=== PATIENT | male | born 1975 | race Caucasian/White ===

== ENCOUNTER 2019-10-07 13:08 | Emergency (ER) | payer BC, OTHER ==
--- OUTSIDE RECORDS SUMMARY | 2019-10-07 13:18 | XMS REPORT | Continuity of Care Document ---
:1975 External Reference #:[id number] Author Name JUAN Roger Address [address] [place] [address] Care Team Providers Name Role Phone Carmelo Kuo MD - Infectious Care Team Information Wheel Installer [phone] Disease Lisa Bals MD - Surgery of the Care Team Information Wheel Installer Hand Titi Grijalva MD - Family Medicine Care Team Information Wheel Installer [phone] Problems Active Problems Provider Date Mixed hyperlipidemia Titi Grijalva M.D. Onset: 08/29/2015 Mild recurrent major depression Randal Durham M.D. Onset: 10/24/2013 Cellulitis and abscess of finger Randal Durham M.D. Onset: 10/24/2013 Adult health examination Randal Durham M.D. Onset: 10/24/2013 Bite of nonvenomous arthropod Randal Durham M.D. Onset: 05/18/2013 Alcohol abuse Randal Durham M.D. Onset: 05/16/2013 Allergic rhinitis Randal Durham M.D. Onset: 10/14/2012 Essential hypertension Randal Durham M.D. Onset: 10/14/2012 Social History Type Date Description Comments Sex Unknown ETOH Use Occasional Tobacco Use Start: Unknown End: Unknown Patient is a former smoker Smoking Status Reviewed: 09/19/19 Patient is a former smoker Allergies, Adverse Reactions, Alerts Active Allergies Reaction Severity Comments Date Sulfa 10/14/2012 Medications Active Medications SIG Qnty Indications Ordering Date Provider Viagra take 1 tablet 21tabs Titi Grijalva, 10/14/2012 25mg Tablets daily as needed, M.D. take at least one hour prior to relations Bystolic Take 1 And 1/2 135tabs I10 Titi Grijalva, 10/14/2012 10mg Tablets Tablets Daily M.D. History Medications Zetia take 1 tablet 30tabs E78.2 Eveline Solomon 07/13/2019 - 10mg daily BENI Walker 09/19/2019 Tablets Immunizations CPT Code Status Date Vaccine Lot # [id number] Given 06/30/2016 Influenza Vac, Quadrivalent, Slit Virus, Im [id number] Given 10/18/2013 Tdap Tetanus, W Pertussis [id number] Vital Signs Date Vital Result Comment 09/19/2019 1:04pm BP Systolic 142 mmHg BP Diastolic 100 mmHg BP Systolic Recheck 138 mmHg BP Diastolic Recheck 85 mmHg Heart Rate 60 /min Body Temperature 97.7 F Height 73.25 inches 6'1.25" Weight 232.00 lb BMI (Body Mass Index) 30.4 kg/m2 07/13/2019 6:21pm BP Systolic 120 mmHg BP Diastolic 70 mmHg Heart Rate 68 /min Body Temperature 97.9 F Respiratory Rate 16 /min Height 73.25 inches 6'1.25" Weight 227.00 lb BMI (Body Mass Index) 29.7 kg/m2 Results Test Acquired Date Facility Test Result H/L Range Note Comprehensive 07/06/2019 [facility] Sodium 137 mEq/L 134-149 Metabolic Prof Potassium 4.3 mEq/L 3.6-5.5 Chloride 103 mEq/L 94-112 Carbon Dioxide 24 mEq/L 21-32 Glucose 103 mg/dL 70-105 BUN 21 mg/dL 6-26 Creatinine 1.1 mg/dL 0.6-1.4 BUN/Creat Ratio 19.1 CALC 8.0-36.0 Calcium 8.9 mg/dL 8.6-10.2 Total Protein 6.6 g/dL 6.4-8.3 Albumin 4.1 g/dL 3.8-5.5 Globulin 2.5 g/dL 2.0-4.8 A/G Ratio 1.6 CALC 0.6-2.3 Alk. Phosphatase 58 U/L 22-95 Alt (SGPT) 25 U/L 7-35 Ast (Sgot) 21 U/L 5-34 Total Bilirubin 0.4 mg/dL 0.2-1.3 GFR Non- >60 ml/min/1.73m^ >=60 GFR >60 ml/min/1.73m^ >=60 Lipid Profile 07/06/2019 [facility] Cholesterol 278 mg/dL High 120-200 Triglycerides 454 mg/dL High 30-200 HDL Cholesterol 45 mg/dL 30-70 LDL (Calculated) 142 CALC High 0-129 VLDL Cholesterol 91 mg/dL High 0-50 HDL Risk Factor 6.2 CALC High 0.0-4.4 Laboratory test 07/06/2019 [facility] LDL, Direct 137 mg/dL High 0-130 finding Procedures Description No Information Available Medical Devices Description No Information Available Encounters Type Date Location Provider Dx Diagnosis Office Visit 07/13/2019 Main Office JUAN Roger E78.2 Mixed hyperlipidemia 6:30p M79.604 Pain in right leg Assessments Date Code Description Provider 09/19/2019 E78.2 Mixed hyperlipidemia JUAN Roger 09/19/2019 E78.2 Mixed hyperlipidemia JUAN Roger 07/13/2019 E78.2 Mixed hyperlipidemia JUAN Roger 07/13/2019 M79.604 Pain in right leg JUAN Roger 07/06/2019 E78.2 Mixed hyperlipidemia Titi Grijalva M.D. 07/06/2019 E78.1 Pure hyperglyceridemia Titi Grijalva M.D. 07/05/2019 E78.2 Mixed hyperlipidemia Titi Grijalva M.D. Plan of Treatment 09/19/2019 - Manuela Jimenez, PAE78.2 Mixed hyperlipidemiaComments:Stop Zetia Increase activity as tolerated, whole food plant based as much as possible with lean meats. fatty fish, fish oil, more plantsFollow up in 3 months of sooner if you still aren't feeling well after stopping zetia.E78.2 Mixed hyperlipidemiaComments:Stop Zetia Increase activity as tolerated, whole food plant based as much as possible with lean meats. fatty fish, fish oil, more plantsFollow up in 3 months of sooner if you still aren't feeling well after stopping zetia.AllComments:PCMHMedication Management Patient Understands medications he's taking? Yes Are there Barriers to Adherence? No Has the patient been asked about herbal supplements and therapies, and OTC meds ? Yes Care Plan1. Patient has been queried about patient's goals/ preferences and functional/lifestyle goals at relevant visits. Yes If relevant, describe: N/A2. Treatment goals as explained to the patient: above3. Are there barriers to meeting treatment goals? No If Yes, please describe:4. Self-Management goals as described to the patient: Yes As always, we strongly encourage a healthy diet and making physical activity a part of your every day life. If you have questions about how or where to start, please contact the office. Functional Status Description No Information Available Mental Status Description No Information Available Referrals Refer to Reason for Referral Status Appt Date [facility] Physical Evaluate and treat-probable Created Therapy sciatic pain jw Order faxed. [address] [id number] [phone] [facility] Physical Evaluate and treat-probable sciatic Created Therapy pain jw Order faxed. [address] [id number] [phone]
[2019-10-07 13:23] VITALS: BP 171/108
--- NOTE | 2019-10-07 14:39 | UC ---
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 - History of Current Complaint Chief Complaint: UCLaceration Time Seen by Provider: 10/07/19 14:12 Stated Complaint: PUNCTURE WOUND TO HAND Hx Obtained From: Patient Onset/Duration: Sudden Onset, Lasting Hours Timing: Constant Onset Severity: Moderate Current Severity: Mild Pain Intensity: 1 Pain Scale Used: 0-10 Numeric Location: Discrete Aggravating Factor(s): Nothing Alleviating Factor(s): Nothing Associated Signs & Symptoms: Positive: Negative - Allergy/Home Medications Allergies/Adverse Reactions: Allergies Allergy/AdvReac Type Severity Reaction Status Date / Time Sulfa (Sulfonamide Allergy Rash Verified 10/07/19 13:23 Antibiotics) Home Medications: Home Medications Amoxicillin/Clavulanate TAB* [Augmentin TAB 875*] 875 mg PO BID #20 tab [Rx] Nebivolol HCl [Bystolic] 15 mg PO DAILY 10/07/19 [History Confirmed 10/07/19] PMH/Surg Hx/FS Hx/Imm Hx Previously Healthy: No Cardiovascular History: Hypertension - Surgical History Surgical History: Yes Surgery Procedure, Year, and Place: ORAL - Family History Known Family History: Positive: None - Social History Occupation: Employed Full-time Lives: With Family Alcohol Use: Occasionally Substance Use Type: None Smoking Status (MU): Never Smoked Tobacco - Immunization History Most Recent Tetanus Shot: utd Review of Systems All Other Systems Reviewed And Are Negative: Yes Constitutional: Positive: Negative Skin: Positive: Other - puncture wound no bleeding to left hand radial aspect Eyes: Positive: Negative ENT: Positive: Negative Respiratory: Positive: Negative Cardiovascular: Positive: Negative Gastrointestinal: Positive: Negative Genitourinary: Positive: Negative Motor: Positive: Negative Neurovascular: Positive: Negative Musculoskeletal: Positive: Negative Neurological/Mental Status: Positive: Negative Psychological: Positive: Negative Is Patient Immunocompromised?: No Physical Exam Triage Information Reviewed: Yes Appearance: Well-Appearing, No Pain Distress, Well-Nourished Vital Signs: Initial Vital Signs Temp 98 F 10/07/19 13:18 Pulse 54 10/07/19 13:18 Resp 16 10/07/19 13:18 BP 171/108 10/07/19 13:18 Pulse Ox 100 10/07/19 13:18 Vital Signs Reviewed: Yes Eye Exam: Normal Eyes: Positive: Conjunctiva Clear ENT Exam: Normal ENT: Positive: Normal ENT inspection, Hearing grossly normal. Negative: Trismus , Muffled voice, Hoarse voice Dental Exam: Normal Neck exam: Normal Neck: Positive: Supple, Nontender Respiratory Exam: Normal Respiratory: Positive: Chest non-tender, No respiratory distress, No accessory muscle use Cardiovascular Exam: Normal Cardiovascular: Positive: RRR, Pulses Normal, Brisk Capillary Refill Musculoskeletal Exam: Normal Musculoskeletal: Positive: Strength Intact, ROM Intact, No Edema, Other: - full strength and rom distal to injury Neurological Exam: Normal Psychological Exam: Normal Skin: Positive: Other - through and through pw to left hand radial aspect--no bleeding or swelling Course/Dx - Course Course Of Treatment: tetanus UTD, Augmentin, soap and water wash bid referral to hand surgeon, follow bp with pcp in 1-2 weeks - Diagnoses Provider Diagnosis: Puncture wound of left hand without complication Discharge ED - Sign-Out/Discharge Documenting (check all that apply): Patient Departure All imaging exams completed and their final reports reviewed: No Studies - Discharge Plan Condition: Stable Disposition: HOME Prescriptions: Amoxicillin/Clavulanate TAB* [Augmentin TAB 875*] 875 mg PO BID #20 tab Patient Education Materials: Puncture Wound (ED), Hypertension (ED), Warm Compress or Soak (ED) Referrals: Titi Grijalva MD [Primary Care Provider] - 1 Week Iesha Elena MD [Medical Doctor] - 3 Days (hand surgeon) - Billing Disposition and Condition Condition: STABLE Disposition: Home
== END 2019-10-07 15:05 | disposition home or self-care (01) ==
LOC: UCEAST 13:08
DX: S61.032A Puncture wound without foreign body of left thumb without damage to nail, initial encounter (principal); W61.99XA Other contact with other birds, initial encounter; Y93.K9 Activity, other involving animal care; Y92.9 Unspecified place or not applicable; I10 Essential (primary) hypertension; Z79.899 Other long term (current) drug therapy; Z88.2 Allergy status to sulfonamides
CPT/HCPCS: 99211; G0463